=== PATIENT | female | born 1970 | race Caucasian/White ===

== ENCOUNTER 2021-02-23 14:56 | Outpatient (CLI) | payer OTHER, SELFPAY ==
--- NOTE | ~2021-02-23 | XR_ITS ---
EXAMINATION: XR abdomen/kub 1V DATE: 02/23/2021 15:19 INDICATION: Crohn's disease of small intestine. TECHNIQUE: A supine view of the abdomen on 2 radiographs was obtained. COMPARISON: Abdomen radiographs 11/28/2006 FINDINGS: There are no dilated loops of bowel. There is a small volume of stool in the colon. There i s a staple line in right abdomen. Calcifications in the pelvis are likely phleboliths. Surgical clips in the right upper quadrant are likely from cholecystectomy. IMPRESSION: 1. Normal bowel gas pattern. Reviewed, dictated and finalized at location A.
[2021-02-23 16:00] LABS: Hematocrit 39.6 % (37.0-47.0); Mean Corpuscular HGB Conc 32.8 g/dl (32-36); Mean Corpuscular Hemoglobin 30.2 pg (26-34); Mean Corpuscular Volume 91.9 fl (80-100); Mean Platelet Volume 8.7 fl (7.4-10.4); Platelet Count Result 339 k/mm3 (150-375); Red Blood Count 4.31 M/mm3 (4.2-5.4); Red Cell Distribution Width 13.7 % (11.5-14.5); White Blood Count 12.9 K/mm3 (4.5-10.0)
[2021-02-23 16:08] LABS: Alanine Aminotransferase 24 U/L (4-35); Albumin Level 4.5 g/dL (3.5-5.1); Alkaline Phosphatase 72 U/L (38-126); Anion Gap 8 mmol/L (8-16); Aspartate Amino Transferase 19 U/L (14-36); Bilirubin,Total 0.8 mg/dL (0.2-1.3); Blood Urea Nitrogen 18 mg/dL (7-17); CRP 0.7 mg/dL (<1.0); Calcium 9.5 mg/dL (8.4-10.2); Carbon Dioxide 30 mmol/L (22-30); Chloride 101 mmol/L (98-107); Estimated Glomerular Filt Rate 58; Glucose 95 mg/dL (65-110); Potassium 3.8 mmol/L (3.4-5.0); Sodium 139 mmol/L (137-145)
[2021-02-23 16:57] LABS: Erythrocyte Sedimentation Rate 22 mm/hr (0-20)
[2021-02-27 00:19] LABS: NIL 0.01 IU/mL; Quantiferon TB Plus, 1T NEGATIVE (NEGATIVE)
[2021-03-05 18:31] LABS: TPMT Activity 15
== END 2021-02-23 14:57 | disposition home or self-care (01) ==
LOC: ANHIMG 15:06
PROVIDERS: Visit Provider Nurse Practitioner Family
DX: K50.019 Crohn's disease of small intestine with unspecified complications (principal); R10.30 Lower abdominal pain, unspecified; R11.2 Nausea with vomiting, unspecified
CPT/HCPCS: 36415; 74018; 80053; 82657; 85027; 85652; 86140; 86480

== ENCOUNTER 2021-07-20 16:34 | Outpatient (CLI) | payer OTHER, SELFPAY ==
[2021-07-20 16:50] LABS: Hematocrit 38.1 % (37.0-47.0); Hemoglobin 12.8 g/dL (12.0-15.0); Mean Corpuscular HGB Conc 33.6 g/dl (32-36); Mean Corpuscular Hemoglobin 29.6 pg (26-34); Mean Corpuscular Volume 88.2 fl (80-100); Mean Platelet Volume 8.9 fl (7.4-10.4); Platelet Count Result 306 k/mm3 (150-375); Red Blood Count 4.32 M/mm3 (4.2-5.4); Red Cell Distribution Width 13.1 % (11.5-14.5); White Blood Count 8.5 K/mm3 (4.5-10.0)
[2021-07-20 17:02] LABS: Alanine Aminotransferase 25 U/L (4-35); Albumin Level 4.2 g/dL (3.5-5.1); Alkaline Phosphatase 81 U/L (38-126); Anion Gap 6 mmol/L (8-16); Aspartate Amino Transferase 26 U/L (14-36); Bilirubin,Total 1.2 mg/dL (0.2-1.3); Blood Urea Nitrogen 18 mg/dL (7-17); CRP 0.8 mg/dL (<1.0); Carbon Dioxide 31 mmol/L (22-30); Chloride 101 mmol/L (98-107); Estimated Glomerular Filt Rate 52; Glucose 102 mg/dL (65-110); Potassium 3.2 mmol/L (3.4-5.0); Sodium 138 mmol/L (137-145)
[2021-07-20 18:03] LABS: Erythrocyte Sedimentation Rate 21 mm/hr (0-20)
[2021-07-20 18:12] LABS: Hepatitis B Surface Antigen Negative (Negative)
[2021-07-20 18:18] LABS: HAV RESULT Negative (Negative); Hepatitis B Core IgM Result Negative (Negative)
[2021-07-20 18:30] LABS: Hepatitis C Virus Antibody Negative (Negative)
== END 2021-07-20 16:35 | disposition home or self-care (01) ==
PROVIDERS: Visit Provider Nurse Practitioner Family
DX: K50.019 Crohn's disease of small intestine with unspecified complications (principal)
CPT/HCPCS: 36415; 80053; 80074; 85027; 85652; 86140

== ENCOUNTER 2021-07-29 12:46 | Outpatient (CLI) | payer OTHER, SELFPAY ==
--- NOTE | ~2021-07-29 | XR_ITS ---
EXAMINATION: XR small bowel follow through DATE: 07/29/2021 16:07 INDICATION: Crohn's disease of small intestine. TECHNIQUE: Oral contrast was administered, and a time course of radiographs of the abdomen was obtain ed. Fluoroscopy of the small bowel was performed. Fluoroscopy exposure time was 0.2 minutes. The tota l number of images was 18. COMPARISON: Small bowel series 05/15/2006 FINDINGS: Surgical clips in the right upper quadrant are likely from cholecystectomy. There are changes of ileo colic resection and anastomosis. There are dilated loops of distal small bowel with irregular fold th ickening. Transit time from the stomach to proximal colon was approximately 1 hour and 45 minutes. IMPRESSION: 1. Dilated loops of distal small bowel with irregular fold thickening, consistent with inflammation a nd adynamic ileus. No stricture visualized. Reviewed, dictated and finalized at location A. IMPRESSION: 1. Dilated loops of distal small bowel with irregular fold thickening, consiste nt with inflammation and adynamic ileus. No stricture visualized.
[2021-08-05 18:32] LABS: Calprotectin, Stool 370 mcg/g
== END 2021-07-29 12:47 | disposition home or self-care (01) ==
PROVIDERS: Visit Provider Nurse Practitioner Family
DX: K50.019 Crohn's disease of small intestine with unspecified complications (principal)
CPT/HCPCS: 74250; 83993

== ENCOUNTER 2021-11-29 14:34 | Outpatient (CLI) | payer OTHER, SELFPAY ==
[2021-11-29 16:38] LABS: Toxigenic C. Diff NEGATIVE (NEGATIVE)
[2021-12-07 01:57] LABS: Calprotectin, Stool 23 mcg/g
== END 2021-11-29 14:35 | disposition home or self-care (01) ==
LOC: ANHLAB 14:40
PROVIDERS: Visit Provider Nurse Practitioner Family
DX: K90.9 Intestinal malabsorption, unspecified (principal); R10.30 Lower abdominal pain, unspecified; R19.7 Diarrhea, unspecified
CPT/HCPCS: 83993; 87045; 87177; 87209; 87427; 87493

== ENCOUNTER 2022-01-31 13:44 | Outpatient (CLI) | payer OTHER, SELFPAY ==
[2022-01-31 14:08] LABS: Hematocrit 39.3 % (37.0-47.0); Hemoglobin 13.4 g/dL (12.0-15.0); Mean Corpuscular HGB Conc 34.1 g/dl (32-36); Mean Corpuscular Hemoglobin 30.1 pg (26-34); Mean Corpuscular Volume 88.3 fl (80-100); Mean Platelet Volume 9.1 fl (7.4-10.4); Platelet Count Result 338 k/mm3 (150-375); Red Blood Count 4.45 M/mm3 (4.2-5.4); Red Cell Distribution Width 13.2 % (11.5-14.5); White Blood Count 10.4 K/mm3 (4.5-10.0)
[2022-01-31 14:57] LABS: Alanine Aminotransferase 33 U/L (6-35); Albumin Level 4.3 g/dL (3.5-5.1); Alkaline Phosphatase 84 U/L (38-126); Anion Gap 15 mmol/L (8-16); Aspartate Amino Transferase 30 U/L (14-36); Bilirubin,Total 2.1 mg/dL (0.2-1.3); Blood Urea Nitrogen 21 mg/dL (7-17); CRP 0.6 mg/dL (<1.0); Calcium 8.8 mg/dL (8.4-10.2); Carbon Dioxide 18 mmol/L (22-30); Chloride 105 mmol/L (98-107); Estimated Glomerular Filt Rate 47; Glucose 102 mg/dL (65-110); Potassium 2.7 mmol/L (3.4-5.0); Sodium 138 mmol/L (137-145)
[2022-01-31 15:13] LABS: Erythrocyte Sedimentation Rate 28 mm/hr (0-20)
== END 2022-01-31 13:45 | disposition home or self-care (01) ==
LOC: ANHLAB 13:50
PROVIDERS: Visit Provider Nurse Practitioner Family
DX: K50.019 Crohn's disease of small intestine with unspecified complications (principal)
CPT/HCPCS: 36415; 80053; 85027; 85652; 86140

== ENCOUNTER 2022-01-31 15:57 | Emergency (ER) | payer OTHER, SELFPAY ==
[2022-01-31] VITALS (7 sets, daily range): BP systolic 115–131; BP diastolic 78–89; PULSE 92–100; RESP 12–21; TEMP 36.8; O2SAT 95–97
[2022-01-31 17:38] LABS: Basophils Percent Auto 0.2 % (0.2-1.2); Eosinophils Absolute Auto 0.1 K/mm3 (0-0.3); Eosinophils Percent Auto 0.5 % (0-4.4); Hemoglobin 13.5 g/dL (12.0-15.0); Immature Granulocyte Absolute 0.03 K/mm3 (0.00-0.031); Immature Granulocyte Percent A 0.3 % (0-0.5); Lymphocytes Absolute Auto 1.94 K/mm3 (0.9-3.2); Lymphocytes Percent Auto 17.5 % (18.3-44.2); Mean Corpuscular HGB Conc 34.6 g/dl (32-36); Mean Corpuscular Hemoglobin 30.3 pg (26-34); Mean Corpuscular Volume 87.6 fl (80-100); Mean Platelet Volume 8.9 fl (7.4-10.4); Monocytes Absolute Auto 0.8 K/mm3 (0.1-0.6); Neutrophils Absolute Auto 8.3 K/mm3 (1.3-6.7); Neutrophils Percent Auto 74.5 % (45.5-73.1); Platelet Count Result 313 k/mm3 (150-375); Red Blood Count 4.45 M/mm3 (4.2-5.4); Red Cell Distribution Width 13.2 % (11.5-14.5); White Blood Count 11.1 K/mm3 (4.5-10.0)
[2022-01-31 18:00] LABS: Alanine Aminotransferase 34 U/L (6-35); Albumin Level 4.3 g/dL (3.5-5.1); Alkaline Phosphatase 85 U/L (38-126); Anion Gap 12 mmol/L (8-16); Aspartate Amino Transferase 32 U/L (14-36); Blood Urea Nitrogen 21 mg/dL (7-17); Calcium 8.9 mg/dL (8.4-10.2); Carbon Dioxide 22 mmol/L (22-30); Chloride 104 mmol/L (98-107); Estimated CRCL calculation 64 ml/min; Estimated Glomerular Filt Rate 52; Glucose 96 mg/dL (65-110); Potassium 2.8 mmol/L (3.4-5.0); Sodium 138 mmol/L (137-145)
--- NOTE | 2022-01-31 18:04 | ECG_ITS ---
Measurements Intervals Melvin Rate: 97 P: 18 MA: 162 QRS: -32 QRSD: 90 T: 16 QT: 343 QTc: 438 Interpretive Statements SINUS RHYTHM LEFT AXIS DEVIATION LOW QRS VOLTAGE IN PRECORDIAL LEADS BORDERLINE R WAVE PROGRESSION, ANTERIOR LEADS MINIMAL Q WAVES- HIGH LATERAL LEADS BORDERLINE T WAVE ABNORMALITY- ANT/INF LEADS BASELINE ARTIFACT- I, II, III, AVR, AVL, AVF BORDERLINE ECG NO PREVIOUS ECG AVAILABLE FOR COMPARISON Electronically Signed On 01-31-2022 21:27:36 CDT by Fuentes Waters D.O.
[2022-01-31] MEDS: SODIUM CHLORIDE 0.9% IV 250 ML 100 ML IV CONT (18:57)
[2022-01-31] MEDS: KCL 20 MEQ/SW 100 ML 100 ML 50 MEQ IVPB (18:57)
[2022-01-31] MEDS: POTASSIUM CHLORIDE 20 MEQ TABLET 40 MEQ PO (18:57)
--- NOTE | 2022-01-31 20:30 | ED.GENADULT ---
HPI - General Adult General Chief complaint: Recheck/Abnormal Lab/Rx Stated complaint: LOW POTASSIUM Time Seen by Provider: 01/31/22 17:46 History of Present Illness HPI narrative: Patient is a 51-year-old female who presents ER due to a abnormal lab finding. Patient reports yesterday she been having diarrhea as well as vomiting. She has history of Crohn's and called her GI team to see if she can get some steroids but they wanted to perform blood testing first. Symptoms have resolved today but blood was drawn and showed up for potassium level of 2.7. She is having no weakness or cramping. No numbness or tingling. She feels well otherwise. She has been taking her potassium supplement at home. She is on no diuretics. Related Data Home Medications Medication Instructions Recorded Confirmed amitriptyline 25 mg tablet 25 mg PO HS 03/31/19 01/24/22 valsartan 160 mg tablet 160 mg PO DAILY 03/31/19 01/24/22 potassium chloride 20 mEq 20 meq PO DAILY 05/12/19 01/24/22 tablet,extended release Saccharomyces boulardii 250 mg 250 mg PO DAILY 07/20/21 01/24/22 capsule (Daily Probiotic (S. boulardii)) cyanocobalamin (vitamin B-12) 100 mcg subcut MONTHLY 07/20/21 01/24/22 1,000 mcg/mL injection solution essential oil BYMOUTH DAILY 07/20/21 01/24/22 tumeric 1,950 mg BYMOUTH BID 07/20/21 01/24/22 ustekinumab 90 mg/mL subcutaneous 90 mg subcut ONCE 01/24/22 01/24/22 syringe (Stelara) Allergies Allergy/AdvReac Type Severity Reaction Status Date / Time aspirin Allergy Mild HIVES Verified 01/31/22 18:18 Review of Systems Review of Systems: All systems reviewed & are unremarkable except as noted in HPI and below Constitutional: Constitutional: Denies chills and Denies fever(s) ENT: Denies nasal congestion and Denies sore throat Cardiovascular: Cardiovascular: Denies chest pain, Denies rapid heart rate and Denies radiating jaw, neck or arm pain Respiratory: Respiratory: Denies cough and Denies dyspnea Gastrointestinal: Gastrointestinal: Denies abdominal pain, Reports diarrhea, Reports nausea and Reports vomiting [facility] Past Medical History Medical History Abdominal pain Cancer Colitis Crohn's disease of ileum Diarrhea Head ache Hypertension Hypokalemia Obese Ulcer Surgical History Surgical History History of bowel resection History of cholecystectomy History of reversal of ileostomy Status post surgical removal of malignant neoplasm of skin Family History Family History Father Asthma Mother Breast cancer Grandparent Breast cancer Social History Social History Smoking status: Never smoker Alcohol intake: current Drinks per week: 0 Alcohol use details: every 2-3 months Spiritual care concerns: No Exam Narrative: GENERAL: Well-appearing, well-nourished, and in no acute distress. HEAD: Normocephalic, atraumatic. EYES: PERRL and EOMI. ENT: Mucous membranes moist. CHEST: Clear to auscultation. No respiratory distress. HEART: Regular rate and rhythm. Normal peripheral pulses. ABDOMEN: Soft, nontender, nondistended. EXTREMITIES: Normal range of motion. No edema. NEURO:Alert and oriented x3. PSYCH: Normal mood and affect. Course Course Emergency Course: Potassium replaced. Patient asymptomatic. Discharge home. Patient has home replacement she can take. Vital Signs Vital signs: Vital Signs Temperature 98.2 F 01/31/22 16:05 Pulse Rate 97 01/31/22 16:05 Respiratory Rate 20 01/31/22 16:05 Blood Pressure 128/78 01/31/22 16:05 Pulse Oximetry 96 01/31/22 16:05 Oxygen Delivery Room Air 01/31/22 16:05 Temperature 98.2 F 01/31/22 16:05 Pulse Rate 96 01/31/22 21:08 Respiratory Rate 18 01/31/22 21:08 Blood Pressure 118/80
[2022-01-31 21:40] LABS: Anion Gap 10 mmol/L (8-16); Blood Urea Nitrogen 20 mg/dL (7-17); Calcium 8.5 mg/dL (8.4-10.2); Carbon Dioxide 21 mmol/L (22-30); Chloride 105 mmol/L (98-107); Estimated CRCL calculation 77 ml/min; Estimated Glomerular Filt Rate > 60; Glucose 90 mg/dL (65-110); Potassium 3.1 mmol/L (3.4-5.0); Sodium 136 mmol/L (137-145)
== END 2022-01-31 21:50 | disposition home or self-care (01) ==
PROVIDERS: Emergency Medicine; Emergency Provider Emergency Medicine; PCP Nurse Practitioner Family
DX: E87.6 Hypokalemia (principal); I10 Essential (primary) hypertension; K50.90 Crohn's disease, unspecified, without complications; E66.9 Obesity, unspecified; Z68.34 Body mass index [BMI] 34.0-34.9, adult; Z90.49 Acquired absence of other specified parts of digestive tract; Z85.828 Personal history of other malignant neoplasm of skin
CPT/HCPCS: 36415; 80048; 80053; 85025; 85027; 85652; 86140; 93005; 96365; 96366; 99284; A9270; J3480; J7050

== ENCOUNTER 2022-02-17 05:45 | Inpatient (IN) | payer OTHER, SELFPAY ==
--- NOTE | ~2022-02-17 | CT_ITS ---
EXAMINATION: CT abdomen pelvis w con DATE: 02/17/2022 07:13 INDICATION: Crohn's disease presenting with upper abdominal pain TECHNIQUE: Computed tomography (CT) of the abdomen and pelvis was performed with 100 mL Omnipaque-350 intravenous contrast. Automated exposure control and iterative reconstruction technique were employe d. The dose-length product was 1489.40 mGy-cm. COMPARISON: None FINDINGS: Mild dependent atelectasis in the bilateral lower lobes. Heart size is normal. No pericardial or pleu ral effusion. Small sliding-type hiatal hernia. Focal hepatic steatosis at the ligamentum teres and a long the anterior margin of the caudal tip of the right hepatic lobe. Cholecystectomy clips the gallb ladder fossa. Spleen, pancreas, bilateral adrenal glands and kidneys are normal. There are multiple l oops of fluid-filled dilated small bowel measuring up to 5.6 cm maximal diameter extending to a trans ition point at the distalmost remaining ileum approximately 10 cm from the ileocolic anastomosis in t he right lower quadrant. The transition point is at a sharp 180 degree change in course of the ilium with mild wall thickening in the remaining distal 10 cm filling is unclear whether this is due to an adhesion or distal stricture. The more distal colon is largely decompressed. Bladder is normal. The u terus is not identified and has likely been surgically resected. Small amount of free fluid in the de ep pelvis. No abscess or free intraperitoneal gas. There is a very small fat-containing ventral herni a slightly cephalad to the right pubic body at the caudal margin of the midline surgical scar. A few mildly prominent but still normal-sized likely reactive ileocolic chain lymph nodes. No pathologicall y enlarged abdominal or pelvic lymphadenopathy. Bones are unremarkable. IMPRESSION: 1. Small bowel obstruction with transition into right lower quadrant 10 cm proximal to the ileocolic anastomosis could be due to either adhesion or stricture. 2. Small sliding-type hiatal hernia. 3. Small fat-containing ventral hernia along the caudal anterior pelvic wall. Reviewed, dictated and finalized at location A. IMPRESSION: 1. Small bowel obstruction with transition into right lower quadrant 10 cm prox imal to the ileocolic anastomosis could be due to either adhesion or stricture. 2. Small sliding-type hiatal hernia. 3. Small fat-containing ventral hernia along the caudal anterior pelvic wall.
--- NOTE | ~2022-02-17 | XR_ITS ---
EXAMINATION: XR abdomen NG/feed tube insert DATE: 02/17/2022 09:16 INDICATION: Nasogastric tube placement. TECHNIQUE: An upright view of the abdomen was obtained. COMPARISON: CT abdomen and pelvis 02/17/2022 FINDINGS: The lower abdomen is excluded. There is dilated small bowel in left abdomen. The colon is d ecompressed. The nasogastric tube tip is in the stomach. IMPRESSION: 1. Nasogastric tube tip in the stomach. 2. Dilated small bowel, consistent with small bowel obstruction. Reviewed, dictated and finalized at location D.
--- NOTE | ~2022-02-17 | XR_ITS ---
UGI-AIR CONTRAST/SMALL BOWEL INDICATION: Small bowel obstruction. History of Crohn's disease. TECHNIQUE: Serial images of the upper GI tract structures and small bowel are performed following ora l administration of water-soluble contrast. COMPARISON: 02/17/2022 FINDINGS: . NG tube in the stomach. Gastric contour, mucosa and motility are normal. The duodenal bu lb fills and empties regularly and has a normal mucosal pattern. The duodenal sweep is in normal pos ition. There is rapid transit of contrast through the small bowel to the colon of less than 30 minute s. The distal small bowel mucosal pattern is slightly irregular. There are changes of partial distal small bowel resection. There are cholecystectomy clips. IMPRESSION: 1: No evidence for obstruction. Irregularity to the distal small bowel, likely reflects patient's kno wn Crohn's disease. Distortion of the bowel is seen consistent with partial distal small bowel resect ion. Reviewed, dictated and finalized at location A. IMPRESSION: 1: No evidence for obstruction. Irregularity to the distal small bowel, likely reflects patient's known Crohn's disease. Distortion of the bowel is seen consi stent with partial distal small bowel resection.
--- NOTE | 2022-02-17 06:12 | PC.NURSE ---
pt states she is unable to void at this time.
--- NOTE | 2022-02-17 06:12 | ED.GENADULT ---
HPI - General Adult General Chief complaint: Abdominal Pain <Ronni Costa MD - Last Filed: 02/17/22 06:50> Stated complaint: abdominal pain <Ronni Costa MD - Last Filed: 02/17/22 06:50> Time Seen by Provider: 02/17/22 05:59 <Ronni Costa MD - Last Filed: 02/17/22 06:50> History of Present Illness HPI narrative: 51-year-old female with history of Crohn's disease and previous small bowel obstructions presenting to the emergency department for evaluation of worsening upper abdominal pain. Patient states symptoms have been intermittently worsening since November. Patient states over the last few days they have worsened even more. Patient does describe nausea and vomiting. Patient states she is still passing some stool. Patient does have follow-up with the [facility] and sees Trish. Reports prior history of small bowel resection in 1985 and 2013. Patient also has a prior history of cholecystectomy. Patient has been taking Stelara/Ustekinumab for her Crohn's disease.. <Ronni Costa MD - Last Filed: 02/17/22 06:50> Related Data Home medications: Home Medications Medication Instructions Recorded Confirmed amitriptyline 25 mg tablet 25 mg PO HS 03/31/19 01/24/22 valsartan 160 mg tablet 160 mg PO DAILY 03/31/19 01/24/22 potassium chloride 20 mEq 20 meq PO DAILY 05/12/19 01/24/22 tablet,extended release Saccharomyces boulardii 250 mg 250 mg PO DAILY 07/20/21 01/24/22 capsule (Daily Probiotic (S. boulardii)) cyanocobalamin (vitamin B-12) 100 mcg subcut MONTHLY 07/20/21 01/24/22 1,000 mcg/mL injection solution essential oil BYMOUTH DAILY 07/20/21 01/24/22 tumeric 1,950 mg BYMOUTH BID 07/20/21 01/24/22 ustekinumab 90 mg/mL subcutaneous 90 mg subcut ONCE 01/24/22 01/24/22 syringe (Stelara) <Ronni Costa MD - Last Filed: 02/17/22 06:50> Allergies/adverse reactions: Allergies Allergy/AdvReac Type Severity Reaction Status Date / Time aspirin Allergy Mild HIVES Verified 01/31/22 18:18 <Ronni Costa MD - Last Filed: 02/17/22 06:50> Review of Systems Review of Systems: CONSTITUTIONAL: Denies fever, chills, or sweats. EYES: Denies visual changes, redness, or discharge. ENT: Denies rhinorrhea, congestion, sore throat, or otalgia. CARDIOVASCULAR: Denies chest pain, palpitations, or edema. RESPIRATORY: Denies cough or dyspnea. GASTROINTESTINAL: See HPI GENITOURINARY: Denies dysuria or hematuria. SKIN: Denies rash or itching. MUSCULOSKELETAL: Denies back pain, joint pain, or myalgia. NEUROLOGIC: Denies headache, numbness, or weakness. PSYCHIATRIC: Denies anxiety or depression. <Ronni Costa MD - Last Filed: 02/17/22 06:50> PMFSH Past Medical History Medical History: Medical History Abdominal pain Cancer Colitis Crohn's disease of ileum Diarrhea Head ache Hypertension Hypokalemia Obese Ulcer <Ronni Costa MD - Last Filed: 02/17/22 06:50> Surgical History Surgical History: Surgical History History of bowel resection History of cholecystectomy History of reversal of ileostomy Status post surgical removal of malignant neoplasm of skin <Ronni Costa MD - Last Filed: 02/17/22 06:50> Family History Family History: Family History Father Asthma Mother Breast cancer Grandparent Breast cancer <Ronni Costa MD - Last Filed: 02/17/22 06:50> Social History Social History: Social History Smoking status: Never smoker Alcohol intake: current Drinks per week: 0 Alcohol use details: every 2-3 months Spiritual care concerns: No <Ronni Costa MD - Last Filed: 02/17/22 06:50> Exam Narrative: APPEARANCE: Well appearing, no pain, no distress, well-nourished. TRAVIS
[2022-02-17 06:18] LABS: Basophils Percent Auto 0.2 % (0.2-1.2); Eosinophils Percent Auto 0.5 % (0-4.4); Hematocrit 37.9 % (37.0-47.0); Hemoglobin 13.1 g/dL (12.0-15.0); Immature Granulocyte Absolute 0.03 K/mm3 (0.00-0.031); Immature Granulocyte Percent A 0.4 % (0-0.5); Lymphocytes Absolute Auto 1.08 K/mm3 (0.9-3.2); Lymphocytes Percent Auto 13.3 % (18.3-44.2); Mean Corpuscular HGB Conc 34.6 g/dl (32-36); Mean Corpuscular Hemoglobin 30.3 pg (26-34); Mean Corpuscular Volume 87.5 fl (80-100); Mean Platelet Volume 8.8 fl (7.4-10.4); Monocytes Absolute Auto 0.6 K/mm3 (0.1-0.6); Monocytes Percent Auto 7.9 % (2.6-8.5); Neutrophils Absolute Auto 6.3 K/mm3 (1.3-6.7); Neutrophils Percent Auto 77.7 % (45.5-73.1); Platelet Count Result 313 k/mm3 (150-375); Red Blood Count 4.33 M/mm3 (4.2-5.4); Red Cell Distribution Width 12.9 % (11.5-14.5); White Blood Count 8.1 K/mm3 (4.5-10.0)
[2022-02-17] MEDS: SODIUM CHLORIDE 0.9% IV 1,000 ML 999 ML IV CONT (06:20)
[2022-02-17] MEDS: ONDANSETRON INJ 4 MG/2 ML VIAL IV PUSH (06:21)
[2022-02-17] MEDS: HYDROmorphone HCL INJ (*CRX) 1 MG/ML SYR 0.5 MG IV PUSH (06:21)
[2022-02-17 06:30] LABS: Lactic Acid Reflex 0.7 mmol/L (0.7-2.0)
[2022-02-17 06:31] LABS: Alanine Aminotransferase 63 U/L (6-35); Albumin Level 4.2 g/dL (3.5-5.1); Alkaline Phosphatase 121 U/L (38-126); Anion Gap 9 mmol/L (8-16); Aspartate Amino Transferase 54 U/L (14-36); Bilirubin,Total 1.6 mg/dL (0.2-1.3); Blood Urea Nitrogen 15 mg/dL (7-17); Calcium 8.8 mg/dL (8.4-10.2); Carbon Dioxide 24 mmol/L (22-30); Chloride 106 mmol/L (98-107); Estimated CRCL calculation 71 ml/min; Estimated Glomerular Filt Rate 58; Glucose 122 mg/dL (65-110); Lipase 43 U/L (23-300); Potassium 3.4 mmol/L (3.4-5.0); Sodium 139 mmol/L (137-145)
[2022-02-17 07:43] VITALS: BP 131/86; PULSE 85; RESP 19; O2SAT 98
[2022-02-17 07:46] VITALS: BP 128/82; PULSE 82; RESP 19; O2SAT 97
[2022-02-17 08:01] VITALS: BP 126/82; PULSE 85; RESP 12; O2SAT 97
--- NOTE | 2022-02-17 08:15 | PC.NURSE ---
pt attempting to provide urine sample at this time
--- NOTE | 2022-02-17 08:30 | PC.NURSE ---
pt unable to give urine sample
--- NOTE | 2022-02-17 09:44 | ADMGEN ---
This patient, Em Guerra, was admitted to 2 Medical Room 241-01. Patient/family oriented to hospital policies and general routines including ID bracelet, bed and alarms, visiting hours, pain management, procedures, bathroom and other care routines, personal items, smoking policy, room service/diet, and visiting hours. Information on how to activate the Rapid Response Team has been discussed. Patient/Family are encouraged to report perceived risks to care and to ask questions if they do not understand what they are told or what they should do. ED SBAR printed, spoke with CORTES Anderson
[2022-02-17 09:45] VITALS: BP 124/80; PULSE 78; RESP 12; TEMP 36.4; O2SAT 98
[2022-02-17] MEDS: MORPHINE SULFATE (*CRX) 2 MG/ML INJ IV PUSH ×2 (09:59→17:04)
[2022-02-17] MEDS: SODIUM CHLORIDE 0.9% IV 1,000 ML 100 ML IV CONT ×2 (10:00→21:06)
--- NOTE | 2022-02-17 13:00 | PM.IMHP ---
H&P: HPI History of Present Illness Date/Time: 02/17/22 13:00 Chief Complaint: Abdominal pain. Narrative: This is a pleasant 51-year-old female with Crohn's disease and history of small-bowel obstructions status post partial small-bowel resection who presented to the emergency department for evaluation of abdominal pain. It is not necessarily unusual for her to have bouts of abdominal pain which she attributes to her Crohn's disease. She is typically able to manage these flare-ups at home with bowel rest and analgesics. The last few days however her pain has been more intense and has lasted longer associated with nausea and vomiting. In fact she thinks that 2 days ago her emesis may have contained feculent material. Normally she has 6 to 7 loose stools a day at baseline however over the last couple of days she has been only having 1 to 2 small loose stools a day. She has not noticed any blood or mucus in the stool or any blood in her emesis. She has not had fever, chills, or sweats. CT of the abdomen and pelvis showed evidence of a small-bowel obstruction with transition into the right lower quadrant approximately 10 centimeters proximal to an ileocolic anastomosis which could be either due to adhesions or stricture. She is being admitted in this setting for further treatment. At the time my evaluation she feels perhaps a little bit better since her NG tube was inserted as she continues to have intermittent cramping and sharp shooting pain. Last Stelara injection was about 1 month ago. She has not been on steroids for quite some time. Review of Systems Review of Systems: Twelve systems were reviewed. No fever, chills, or sweats. No recent cold or flu symptoms. No chest pain or shortness of breath. No dysuria. She has occasional cramping in her legs which she attributes to low levels of potassium and magnesium. In fact she was recently started on supplements. No history of venous thromboembolism. Except as documented, all other systems were reviewed and are negative. [facility] Past Medical History Medical History (Updated 02/17/22 @ 17:55 by Reshma Haynes PA-C) Basal cell carcinoma of nose Crohn's disease Hypertension Small bowel obstruction Surgical History Surgical History (Updated 02/17/22 @ 17:52 by Reshma Haynes PA-C) History of basal cell carcinoma excision History of bowel resection History of cholecystectomy History of colonoscopy with polypectomy History of reversal of ileostomy Family History Family History Father Asthma Heart disease Mother Breast cancer Grandparent Breast cancer Social History Social History Social History: Surrogate medical decision maker: Rosemarie Redman, daughter. Code status: Full code. Smoking status: Never smoker Second hand tobacco smoke exposure: No Alcohol intake: current Alcohol use details: Rare alcohol use in moderation Substance use: current Substance use type: marijuana Other substance usage details: Occasial THC edibles for pain. Spiritual care concerns: No Meds Home Medications and Allergies Home Medications Medication Instructions Recorded Confirmed Type amitriptyline 25 mg tablet 25 mg PO HS 03/31/19 02/17/22 History potassium chloride 20 mEq 20 meq PO DAILY 05/12/19 02/17/22 History tablet,extended release Saccharomyces boulardii 250 mg 250 mg PO DAILY 07/20/21 02/17/22 History capsule (Daily Probiotic (S. boulardii)) cyanocobalamin (vitamin B-12) 100 mcg subcut MONTHLY 07/20/21 02/17/22 History 1,000 mcg/mL injection solution essential oil BYMOUTH DAILY 07/20/21 01/24/22 History tumeric 1,950 mg BYMOUTH BID 07/20/21 02/17/22 History cholestyramine (with sugar) 4 gram 4 g PO DAILY #348.6 grams 01/24/22 02/17/22 Rx oral powder ustekinumab 90 mg/mL subcutaneous 90 mg subcut ONCE
[2022-02-17 14:00] VITALS: BP 122/83; PULSE 85; RESP 12; TEMP 36.4; O2SAT 98
--- NOTE | 2022-02-17 14:17 | PC.NURSE ---
pt sent up from ED with orders incomplete for UA and straight cath. Pt voided independently on the floor, no need for cath. UA sent.
[2022-02-17 14:46] LABS: Add Urine Microscopic? YES; Appearance Urine Clear (Clear); Bilirubin Urine Negative (Negative); Blood Urine Negative (Negative); Color Urine Yellow (Yellow); Glucose Urine UA Negative (Negative); Ketones Urine Trace mg/dL (Negative); Leukocyte Esterase Ur Negative LEU/UL (Negative); Mucus Urine Rare /lpf; Nitrate Urine Negative (Negative); Protein Urine 1+ mg/dL (Negative); Squamous Epithelial Cell Urine Many /hpf (Few); Urobilinogen Urine Negative mg/dL (<2.0); WBC Urine 0-3 /hpf
[2022-02-17 15:20] VITALS: BMI 36.1
--- NOTE | 2022-02-17 15:28 | WPDGICN ---
Assessment and Plan Assessment and plan (1) Small bowel obstruction: Code(s): K56.609 - Unspecified intestinal obstruction, unspecified as to partial versus complete obstruction Status: Acute Assessment and Plan: Patient with small-bowel obstruction clinically which correlates with CT scan finding suggests a small obstruction approximately 10cm proximal to the ileocolonic anastomosis. Difficult to tell whether this is secondary to adhesions or to active Crohn's disease. Patient recently has been treated with Stelara. Plan is for NG tube decompression. She may need surgical follow-up in cases fails to resolve. Will give patient brief trial of a IV steroids. (2) Crohn's disease: Code(s): K50.90 - Crohn's disease, unspecified, without complications Status: Acute Assessment and Plan: Patient with known history of Crohn's disease. Most recent colonoscopy 2018 did reveal evidence of active ileitis. She has been on stool are a since November of this year. Now with obstruction that may be related to Adhesions versus active Crohn's disease. (3) History of bowel resection: Code(s): Z90.49 - Acquired absence of other specified parts of digestive tract Status: Acute GI Consult Note Consult date/time: 02/17/22 15:28 Reason for consult: Small-bowel obstruction, Crohn's disease. HPI: Em Guerra is a 51 year old female I am asked to see at the request of the hospitalist service. Patient with a known history of Crohn's disease since age 6. Patient has had 2 previous resections of distal small bowel because of active Crohn's disease. 2014and in 1985. She also has a history of a colecystectomy. patient has been on previous biologic agents. Since November of 2021 she has begun to have more significant abdominal pain along with upper abdominal distention. This has prompted her to be treated with stool are a sense November. She has intermittently required steroid use. She has not taken steroids over the last several weeks however. Patient states because of increasing pain and distention in the upper abdomen she presented the emergency room today which showed CT scan with apparent small bowel obstruction. Patient's family history is noncontributory. She does not smoke cigarettes. She has not taken recent NSAIDs. Review of Systems Review of Systems: Review of systems noncontributory. [facility] Past Medical History Medical History (Updated 02/17/22 @ 13:27 by Reshma Haynes PA-C) Crohn's disease Hypertension Small bowel obstruction Surgical History Surgical History (Updated 02/17/22 @ 13:23 by Reshma Haynes PA-C) History of bowel resection History of cholecystectomy History of colonoscopy with polypectomy History of reversal of ileostomy Status post surgical removal of malignant neoplasm of skin Family History Family History (Updated 02/17/22 @ 13:23 by Reshma Haynes PA-C) Father Asthma Heart disease Mother Breast cancer Grandparent Breast cancer Social History Social History (Updated 02/17/22 @ 13:26 by Reshma Haynes PA-C) Social History: Surrogate medical decision maker: Rosemarie Redman, daughter. Code status: Full code. Smoking status: Never smoker Second hand tobacco smoke exposure: No Alcohol intake: current Alcohol use details: Rare alcohol use in moderation Substance use: current Substance use type: marijuana Other substance usage details: Occasial THC edibles for pain. Spiritual care concerns: No Meds Home Medications and Allergies Home Medications Medication Instructions Recorded Confirmed Type amitriptyline 25 mg tablet 25 mg PO HS 03/31/19 02/17/22 History potassium chloride 20 mEq 20 meq PO DAILY 05/12/19 02/17/22 History tablet,extended release Saccharomyces boulardii 250 mg 250 mg PO DAILY 07/20/21 02/17/22 History capsule (Daily Probiotic (S. boulardii)) cyanoco
[2022-02-17 17:02] LABS: CRP < 0.5 mg/dL (<1.0)
--- NOTE | 2022-02-17 19:01 | PM.CNGS ---
Assessment and Plan Assessment and plan (1) Small bowel obstruction: Code(s): K56.609 - Unspecified intestinal obstruction, unspecified as to partial versus complete obstruction Status: Acute Assessment and Plan: I have reviewed the CT and discussed the findings with the patient. She has evidence of a small-bowel obstruction which is possibly related to adhesions or Crohn's disease. NG tube was placed and we will continue bowel rest with NG decompression at this time. Will await further treatment by GI and determine if obstruction is showing signs of resolution. Will consider small-bowel follow-through if no significant bowel activity is noted within the next 24-48 hours. (2) Crohn's disease: Code(s): K50.90 - Crohn's disease, unspecified, without complications Status: Acute (3) Hypertension: Code(s): I10 - Essential (primary) hypertension Status: Acute (4) History of bowel resection: Code(s): Z90.49 - Acquired absence of other specified parts of digestive tract Status: Acute History of Present Illness Consult details Consult date: 02/17/22 Reason for consult: other (Small-bowel obstruction) Narrative: this is a 51-year-old woman who I am asked to see for a small-bowel obstruction. She presented to the emergency department this morning with worsening abdominal pain over the past 5 days. She states that around Sunday she started feeling some abdominal pain and bloating. She has had bowel obstructions in the past and thought that this might be another bowel obstruction. She was watching her oral intake and limiting to liquids, but over the next several days she continued to worsen. She stated that she was vomiting fecal into material and pain was worsening therefore she decided to come into the emergency department. She has a history of Crohn's disease and underwent 2 prior surgeries for this. She had exploratory surgery with ileostomy and small-bowel resection in 1983 and 2 weeks after had the ileostomy taken down. She then had another exploratory surgery with small bowel resection in 2013. She was being treated for Crohn's and was doing well, but lost her insurance about a year and a half ago and was off any maintenance medications at that time. She was placed back on Stelara about 3 months ago but has not noticed complete improvement. She states that she has since noted some slow improvements but still feels that she is having active Crohn's flare ups. She has had a couple small bowel movements over the past couple days and had a very small bowel movement this morning. She is otherwise not passing flatus. CT in the emergency department showed evidence of a distal small-bowel obstruction and NG tube was placed. She has felt some slight improvement since the NG tube was placed. She was seen by GI and was started on IV steroids. Review of Systems Review of Systems: All systems reviewed & are unremarkable except as noted in HPI and below Constitutional: Constitutional: Denies chills and Denies fever(s) Eyes: Eyes: Denies change in vision ENT: Denies hearing loss, Denies neck pain and Denies sore throat Cardiovascular: Cardiovascular: Denies chest pain and Denies dyspnea Respiratory: Respiratory: Denies cough, Denies dyspnea and Denies wheezing Gastrointestinal: Gastrointestinal: Reports as per HPI Genitourinary: Genitourinary: Denies hematuria and Denies dysuria Musculoskeletal: Musculoskeletal: Denies arthralgias, Denies joint swelling and Denies neck pain Allergic/Immunologic: Allergic/Immunologic: Denies wheezing [facility] Past Medical History Medical History (Updated 02/17/22 @ 17:55 by Reshma Haynes PA-C) Basal cell carcinoma of nose Crohn's disease Hypertension Small bowel obstruction Surgical History Surgical History (Updated 02/17/22 @ 17:52 by Reshma Haynes PA-C) History of basal cell carcinoma excision History of bowel resection Histor
[2022-02-17 19:11] VITALS: BP 106/68; PULSE 86; RESP 18; TEMP 36.2; O2SAT 98
[2022-02-17] MEDS: methylPREDNISolone SOD SUCC 40 MG VIAL IV PUSH (21:07)
[2022-02-17 21:41] VITALS: BMI 36.3
[2022-02-18 03:10] VITALS: BP 115/79; PULSE 90; RESP 18; TEMP 36.4; O2SAT 97
[2022-02-18 05:12] LABS: Hematocrit 35.2 % (37.0-47.0); Hemoglobin 11.9 g/dL (12.0-15.0); Mean Corpuscular HGB Conc 33.8 g/dl (32-36); Mean Corpuscular Hemoglobin 30.7 pg (26-34); Platelet Count Result 277 k/mm3 (150-375); Red Blood Count 3.87 M/mm3 (4.2-5.4); Red Cell Distribution Width 12.9 % (11.5-14.5); White Blood Count 7.7 K/mm3 (4.5-10.0)
[2022-02-18 05:33] LABS: Alanine Aminotransferase 50 U/L (6-35); Albumin Level 3.5 g/dL (3.5-5.1); Alkaline Phosphatase 100 U/L (38-126); Anion Gap 11 mmol/L (8-16); Aspartate Amino Transferase 31 U/L (14-36); Bilirubin,Total 1.5 mg/dL (0.2-1.3); Blood Urea Nitrogen 12 mg/dL (7-17); Carbon Dioxide 23 mmol/L (22-30); Chloride 109 mmol/L (98-107); Estimated CRCL calculation 80 ml/min; Estimated Glomerular Filt Rate > 60; Glucose 107 mg/dL (65-110); Magnesium 1.7 mg/dL (1.6-2.3); Potassium 3.3 mmol/L (3.4-5.0); Sodium 143 mmol/L (137-145)
[2022-02-18] MEDS: methylPREDNISolone SOD SUCC 40 MG VIAL IV PUSH ×3 (05:56→21:53)
[2022-02-18] MEDS: SODIUM CHLORIDE 0.9% IV 1,000 ML 100 ML IV CONT ×2 (05:59→18:04)
[2022-02-18 06:57] LABS: HAV RESULT Negative (Negative); Hepatitis B Core IgM Result Negative (Negative); Hepatitis B Surface Antigen Negative (Negative); Hepatitis C Virus Antibody Negative (Negative)
--- NOTE | 2022-02-18 09:04 | WPDGIPROGNO ---
Progress Note: A&P Assessment and Plan (1) Small bowel obstruction: Code(s): K56.609 - Unspecified intestinal obstruction, unspecified as to partial versus complete obstruction Status: Acute Assessment and Plan: Clinically small-bowel obstruction improving with passage of flatus and stool. Less abdominal distention. Will plan small-bowel follow-through to assess narrowing suggested on CT scan. Continue IV steroids for 1 more day and change to oral medications subsequently. Will clamp NG tube pending results small-bowel series. (2) Crohn's disease: Code(s): K50.90 - Crohn's disease, unspecified, without complications Status: Acute Assessment and Plan: on IV steroids now. Continue biologic agent as previously prescribed. Subjective Date/time seen: 02/18/22 09:04 Patient alert this morning. Feels much more comfortable. Passed flatus and stool. Has received only 2 doses of IV steroids. Review of Systems Review of Systems: Review of systems noncontributory. Exam Narrative: Physical exam reveals patient be alert comfortable at rest NG tube remains in place vital signs stable. HEENT exam no icterus. Lungs are clear. Heart without murmur. Abdomen is softer. Bowel sounds are present. No masses at present. Previous upper abdominal distention now resolved. Objective Data Vital Signs Vital Signs: Vital Signs - 24 hr 02/17/22 09:45 02/17/22 14:00 02/17/22 16:00 Temperature 97.6 F 97.6 F Pulse Rate 78 85 Respiratory Rate 12 12 Blood Pressure 124/80 122/83 Pulse Oximetry 98 98 Oxygen Delivery Room Air 02/17/22 19:11 02/17/22 21:35 02/18/22 03:10 Temperature 97.1 F L 97.6 F Pulse Rate 86 90 Respiratory Rate 18 18 Blood Pressure 106/68 115/79 Pulse Oximetry 98 97 Oxygen Delivery Room Air 02/18/22 08:00 Temperature Pulse Rate Respiratory Rate Blood Pressure Pulse Oximetry Oxygen Delivery Room Air Intake/Output Intake/Output: Intake & Output 02/15/22 02/16/22 02/17/22 02/18/22 23:59 23:59 23:59 23:59 Intake Total 2000 1000 Output Total 1300 400 Balance 700 600 Meds/Results Medications: Active Medications Generic Name Dose Route Start Last Admin Trade Name Freq PRN Reason Stop Dose Admin Sodium Chloride 1,000 mls @ 100 mls/hr 02/17/22 09:25 02/18/22 05:59 Normal Saline Iv IV CONT 100 mls/hr .Q10H AMILCAR Administration Acetaminophen 650 mg in 65 mls @ 260 mls/hr 02/17/22 13:35 Ofirmev 650 Mg Ivpb IVPB 02/18/22 13:34 Q6H PRN Pain Rated 1-6 Methylprednisolone Sodium Succinate 40 mg 02/17/22 22:00 02/18/22 05:56 Methylprednisolone Sod Succ 40 Mg Vial IV PUSH 40 mg Q8HR AMILCAR Administration Morphine Sulfate 2 mg 02/17/22 09:26 02/17/22 17:04 Morphine Sulfate (*Crx) 2 Mg/Ml Inj IV PUSH 2 mg Q4H PRN Administration Pain Rated 5-10 Radiology Results: ITS Impressions Abdomen/Pelvis CT 02/17/22 07:16 IMPRESSION: 1. Small bowel obstruction with transition into right lower quadrant 10 cm proximal to the ileocolic anastomosis could be due to either adhesion or stricture. 2. Small sliding-type hiatal hernia. 3. Small fat-containing ventral hernia along the caudal anterior pelvic wall. Abdomen X-Ray 02/17/22 09:17 IMPRESSION: 1. Nasogastric tube tip in the stomach. 2. Dilated small bowel, consistent with small bowel obstruction. Labs Labs: Laboratory Results - last 24 hr 02/17/22 02/17/22 02/18/22 14:19 16:13 04:24 WBC 7.7 RBC 3.87 L Hgb 11.9 L Hct 35.2 L MCV 91.0 MCH 30.7 MCHC 33.8 RDW 12.9 Plt Count 277 MPV 9.0 Sodium Potassium Chloride Carbon Dioxide Anion Gap BUN Creatinine Estim Creat Clear Calc Estimated GFR Glucose Calcium Magnesium Total Bilirubin AST ALT Alkaline Phosphatase C-Reactive Protein < 0.5 Total Protein Albumin Urine C
--- NOTE | 2022-02-18 11:36 | PM.PNGS ---
Progress Note: A&P Assessment and Plan (1) Small bowel obstruction: Code(s): K56.609 - Unspecified intestinal obstruction, unspecified as to partial versus complete obstruction Status: Acute Assessment and Plan: Bowels moving. SBFT shows no persistent obstruction. Continue as per GI Will sign off for now (2) Crohn's disease: Code(s): K50.90 - Crohn's disease, unspecified, without complications Status: Acute (3) History of bowel resection: Code(s): Z90.49 - Acquired absence of other specified parts of digestive tract Status: Acute (4) Hypertension: Code(s): I10 - Essential (primary) hypertension Status: Acute Subjective Subjective Date/Time Seen: 02/18/22 11:36 Interval history: Bowels moving. No more bloating. No abdominal pain. Exam GI: Inspection: non-distended GI Palp: Yes Soft to palpation, No Tenderness to palpation present (GI), No Guarding due to palpation present (GI) and No Rebound tenderness present Auscultation: normoactive bowel sounds Objective Data Vital Signs Vital Signs: Vital Signs - 24 hr 02/17/22 14:00 02/17/22 16:00 02/17/22 19:11 Temperature 36.4 C 36.2 C L Pulse Rate 85 86 Respiratory Rate 12 18 Blood Pressure 122/83 106/68 Pulse Oximetry 98 98 Oxygen Delivery Room Air 02/17/22 21:35 02/18/22 03:10 02/18/22 08:00 Temperature 36.4 C Pulse Rate 90 Respiratory Rate 18 Blood Pressure 115/79 Pulse Oximetry 97 Oxygen Delivery Room Air Room Air Intake/Output Intake/Output: Intake & Output 02/15/22 02/16/22 02/17/22 02/18/22 23:59 23:59 23:59 23:59 Intake Total 2000 1000 Output Total 1300 400 Balance 700 600 Meds/Results Medications: Active Medications Generic Name Dose Route Start Last Admin Trade Name Freq PRN Reason Stop Dose Admin Sodium Chloride 1,000 mls @ 100 mls/hr 02/17/22 09:25 02/18/22 05:59 Normal Saline Iv IV CONT 100 mls/hr .Q10H AMILCAR Administration Acetaminophen 650 mg in 65 mls @ 260 mls/hr 02/17/22 13:35 Ofirmev 650 Mg Ivpb IVPB 02/18/22 13:34 Q6H PRN Pain Rated 1-6 Methylprednisolone Sodium Succinate 40 mg 02/17/22 22:00 02/18/22 05:56 Methylprednisolone Sod Succ 40 Mg Vial IV PUSH 40 mg Q8HR AMILCAR Administration Morphine Sulfate 2 mg 02/17/22 09:26 02/17/22 17:04 Morphine Sulfate (*Crx) 2 Mg/Ml Inj IV PUSH 2 mg Q4H PRN Administration Pain Rated 5-10 Radiology Results: ITS Impressions Abdomen/Pelvis CT 02/17/22 07:16 IMPRESSION: 1. Small bowel obstruction with transition into right lower quadrant 10 cm proximal to the ileocolic anastomosis could be due to either adhesion or stricture. 2. Small sliding-type hiatal hernia. 3. Small fat-containing ventral hernia along the caudal anterior pelvic wall. Abdomen X-Ray 02/17/22 09:17 IMPRESSION: 1. Nasogastric tube tip in the stomach. 2. Dilated small bowel, consistent with small bowel obstruction. Upper GI Series 02/18/22 11:23 IMPRESSION: 1: No evidence for obstruction. Irregularity to the distal small bowel, likely reflects patient's known Crohn's disease. Distortion of the bowel is seen consistent with partial distal small bowel resection. Labs Labs: Laboratory Results - last 24 hr 02/17/22 02/17/22 02/18/22 14:19 16:13 04:24 WBC 7.7 RBC 3.87 L Hgb 11.9 L Hct 35.2 L MCV 91.0 MCH 30.7 MCHC 33.8 RDW 12.9 Plt Count 277 MPV 9.0 Sodium Potassium Chloride Carbon Dioxide Anion Gap BUN Creatinine Estim Creat Clear Calc Estimated GFR Glucose Calcium Magnesium Total Bilirubin AST ALT Alkaline Phosphatase C-Reactive Protein < 0.5 Total Protein Albumin Urine Color Yellow Urine Appearance Clear Urine pH 5.0 Ur Specific [place] 1.010 Urine Protein 1+ H Urine Glucose (UA) Negative Urine Ketones Trace Ur B
[2022-02-18 14:22] VITALS: BP 112/58; PULSE 95; RESP 18; TEMP 37.1; O2SAT 99
[2022-02-18 19:12] VITALS: BP 124/58; PULSE 100; RESP 17; TEMP 36.3; O2SAT 98
--- NOTE | 2022-02-18 20:14 | PM.IMPN ---
Progress Note: A&P Assessment and Plan (1) Elevated LFTs: Code(s): R79.89 - Other specified abnormal findings of blood chemistry Status: Acute (2) Small bowel obstruction: Code(s): K56.609 - Unspecified intestinal obstruction, unspecified as to partial versus complete obstruction Status: Acute (3) Obese: Code(s): E66.9 - Obesity, unspecified Status: Acute (4) Hypokalemia: Code(s): E87.6 - Hypokalemia Status: Acute (5) Crohn's disease of ileum: Qualifiers: Digestive disease complication type: unspecified complication Qualified Code(s): K50.019 - Crohn's disease of small intestine with unspecified complications Code(s): K50.00 - Crohn's disease of small intestine without complications Status: Acute Plan 02/18/22 pt improved NGT clamped trial of PO anticipate NGT to be removed soon after possible dc in 24hrs Subjective Date/time seen: 02/18/22 20:14 pt feeling much better NGT is clamped pt wanting to drink +BM multiple acknowledges that we are waiting for GI Review of Systems Review of Systems: All systems reviewed & are unremarkable except as noted in HPI and below Exam Narrative: GEN: NAD, AAOx3, cooperative HEENT: NCAT, MMM, EOMI NGT clamped Neck: no JVD Heart: S1S2 RRR Lungs: CTA B/l Abd: soft, NT, ND, bowel sounds normoactive Ext: moves all, no cyanosis, no clubbing, no edema ? Objective Data Vital Signs Vital Signs: Vital Signs - 24 hr 02/17/22 21:35 02/18/22 03:10 02/18/22 08:00 Temperature 97.6 F Pulse Rate 90 Respiratory Rate 18 Blood Pressure 115/79 Pulse Oximetry 97 Oxygen Delivery Room Air Room Air 02/18/22 14:22 02/18/22 19:12 Temperature 98.8 F 97.3 F L Pulse Rate 95 100 Respiratory Rate 18 17 Blood Pressure 112/58 L 124/58 L Pulse Oximetry 99 98 Oxygen Delivery Intake/Output Intake/Output: Intake & Output 02/15/22 02/16/22 02/17/22 02/18/22 23:59 23:59 23:59 23:59 Intake Total 1999 1999 Output Total 1300 600 Balance 700 1400 Meds/Results Medications: Active Medications Generic Name Dose Route Start Last Admin Trade Name Hari PRN Reason Stop Dose Admin Sodium Chloride 1,000 mls @ 100 mls/hr 02/17/22 09:25 02/18/22 18:04 Normal Saline Iv IV CONT 100 mls/hr .Q10H AMILCAR Administration Methylprednisolone Sodium Succinate 40 mg 02/17/22 22:00 02/18/22 14:00 Methylprednisolone Sod Succ 40 Mg Vial IV PUSH 40 mg Q8HR AMILCAR Administration Morphine Sulfate 2 mg 02/17/22 09:26 02/17/22 17:04 Morphine Sulfate (*Crx) 2 Mg/Ml Inj IV PUSH 2 mg Q4H PRN Administration Pain Rated 5-10 Radiology Results: ITS Impressions Abdomen/Pelvis CT 02/17/22 07:16 IMPRESSION: 1. Small bowel obstruction with transition into right lower quadrant 10 cm proximal to the ileocolic anastomosis could be due to either adhesion or stricture. 2. Small sliding-type hiatal hernia. 3. Small fat-containing ventral hernia along the caudal anterior pelvic wall. Abdomen X-Ray 02/17/22 09:17 IMPRESSION: 1. Nasogastric tube tip in the stomach. 2. Dilated small bowel, consistent with small bowel obstruction. Upper GI Series 02/18/22 11:23 IMPRESSION: 1: No evidence for obstruction. Irregularity to the distal small bowel, likely reflects patient's known Crohn's disease. Distortion of the bowel is seen consistent with partial distal small bowel resection. Labs Labs: Laboratory Results - last 24 hr 02/18/22 02/18/22 02/18/22 04:24 04:24 04:24 WBC 7.7 RBC 3.87 L Hgb 11.9 L Hct 35.2 L MCV 91.0 MCH 30.7 MCHC 33.8 RDW 12.9 Plt Count 277 MPV 9.0 Sodium 143 Potassium 3.3 L Chloride 109 H Carbon Dioxide 23 Anion Gap 11 BUN 12 Creatinine 0.90 Estim Creat Clear Calc 80 Estimated GFR > 60 Glucose 107 Calcium 8.0 L Magnesium 1.7 Total Bilirubin 1.5 H AST 31
[2022-02-19 03:36] VITALS: BP 103/63; PULSE 61; RESP 18; TEMP 36.6; O2SAT 97
[2022-02-19] MEDS: SODIUM CHLORIDE 0.9% IV 1,000 ML 100 ML IV CONT (04:10)
[2022-02-19] MEDS: methylPREDNISolone SOD SUCC 40 MG VIAL IV PUSH ×2 (06:06→14:37)
[2022-02-19 06:09] LABS: Basophils Percent Auto 0.1 % (0.2-1.2); Hematocrit 32.5 % (37.0-47.0); Hemoglobin 10.8 g/dL (12.0-15.0); Immature Granulocyte Percent A 1.1 % (0-0.5); Lymphocytes Percent Auto 9.6 % (18.3-44.2); Mean Corpuscular HGB Conc 33.2 g/dl (32-36); Mean Corpuscular Hemoglobin 30.3 pg (26-34); Mean Corpuscular Volume 91.3 fl (80-100); Mean Platelet Volume 9.3 fl (7.4-10.4); Monocytes Absolute Auto 0.5 K/mm3 (0.1-0.6); Monocytes Percent Auto 5.3 % (2.6-8.5); Neutrophils Absolute Auto 7.8 K/mm3 (1.3-6.7); Neutrophils Percent Auto 83.9 % (45.5-73.1); Platelet Count Result 264 k/mm3 (150-375); Red Blood Count 3.56 M/mm3 (4.2-5.4); Red Cell Distribution Width 13.2 % (11.5-14.5); White Blood Count 9.4 K/mm3 (4.5-10.0)
[2022-02-19 06:20] LABS: Anion Gap 11 mmol/L (8-16); Blood Urea Nitrogen 15 mg/dL (7-17); Calcium 8.3 mg/dL (8.4-10.2); Carbon Dioxide 25 mmol/L (22-30); Chloride 108 mmol/L (98-107); Estimated CRCL calculation 89 ml/min; Estimated Glomerular Filt Rate > 60; Glucose 132 mg/dL (65-110); Sodium 144 mmol/L (137-145)
--- NOTE | 2022-02-19 10:22 | WPDGIPROGNO ---
Progress Note: A&P Assessment and Plan (1) Small bowel obstruction: Code(s): K56.609 - Unspecified intestinal obstruction, unspecified as to partial versus complete obstruction Status: Acute Assessment and Plan: Small-bowel obstruction appears resolved. Yesterday's Gastrografin small-bowel series unremarkable aside from surgical changes. Uncertain whether obstruction was related to inflammation and Crohn's disease versus adhesions. Prompt improvement on starting IV Solu-Medrol. Plan to his keep patient on prednisone 20 mg p.o. daily. Decrease by 5 mg every 3rd day. In hopefully stop prednisone over the next 2 weeks. Patient should follow up electively in the GI office with Trish Villasenor, nurse practitioner, or Dr. Max, is her established market research worker. She may resume her other home medications. Fiber diet today. Discharge this afternoon if diet tolerated. (2) Crohn's disease: Code(s): K50.90 - Crohn's disease, unspecified, without complications Status: Acute Assessment and Plan: Patient with known Crohn's disease. It is uncertain how active this is. She did improve 1 starting IV Solu-Medrol. Plan to resume still are up. Brief trial of prednisone initially 20 mg p.o. daily and decrease by 5 mg every 3rd day. We will ask patient follow-up electively in the office with established GI service , Trish Villasenor. Subjective Date/time seen: 02/19/22 10:22 Patient feels much better today. Passing stool. Denies abdominal pain. NG tube has been clamped. Review of Systems Review of Systems: Review of systems noncontributory. Exam Narrative: Physical exam reveals patient be alert. Vital signs stable. HEENT exam is unremarkable. Patient anicteric. Lungs are clear to auscultation and percussion. Heart is without murmur. Abdomen bowel sounds present soft flat nontender with no organomegaly. Objective Data Vital Signs Vital Signs: Vital Signs - 24 hr 02/18/22 14:22 02/18/22 19:12 02/18/22 20:40 Temperature 98.8 F 97.3 F L Pulse Rate 95 100 Respiratory Rate 18 17 Blood Pressure 112/58 L 124/58 L Pulse Oximetry 99 98 Oxygen Delivery Room Air 02/19/22 03:36 Temperature 97.8 F Pulse Rate 61 Respiratory Rate 18 Blood Pressure 103/63 Pulse Oximetry 97 Oxygen Delivery Intake/Output Intake/Output: Intake & Output 02/16/22 02/17/22 02/18/22 02/19/22 23:59 23:59 23:59 23:59 Intake Total 1999 1999 999 Output Total 1300 600 200 Balance 700 1400 800 Meds/Results Medications: Active Medications Generic Name Dose Route Start Last Admin Trade Name Freq PRN Reason Stop Dose Admin Sodium Chloride 1,000 mls @ 100 mls/hr 02/17/22 09:25 02/19/22 04:10 Normal Saline Iv IV CONT 100 mls/hr .Q10H AMILCAR Administration Methylprednisolone Sodium Succinate 40 mg 02/17/22 22:00 02/19/22 06:06 Methylprednisolone Sod Succ 40 Mg Vial IV PUSH 40 mg Q8HR [facility] Administration Morphine Sulfate 2 mg 02/17/22 09:26 02/17/22 17:04 Morphine Sulfate (*Crx) 2 Mg/Ml Inj IV PUSH 2 mg Q4H PRN Administration Pain Rated 5-10 Prednisone 20 mg 02/20/22 08:00 Prednisone 20 Mg Tablet PO DAILY@0800 [facility] Radiology Results: ITS Impressions Abdomen/Pelvis CT 02/17/22 07:16 IMPRESSION: 1. Small bowel obstruction with transition into right lower quadrant 10 cm proximal to the ileocolic anastomosis could be due to either adhesion or stricture. 2. Small sliding-type hiatal hernia. 3. Small fat-containing ventral hernia along the caudal anterior pelvic wall. Abdomen X-Ray 02/17/22 09:17 IMPRESSION: 1. Nasogastric tube tip in the stomach. 2. Dilated small bowel, consistent with small bowel obstruction. Upper GI Series 02/18/22 11:23 IMPRESSION: 1: No evidence for obstruction. Irregularity to the distal small bowel, likely reflects patient's known Crohn's disease. Distortion of the bowel is seen consistent with parti
--- NOTE | 2022-02-19 19:57 | PM.DS ---
DS: Admitting Diagnosis Discharge Date 02/19/22 Admitting Diagnosis SBO DS: Discharge Diagnosis Discharge Diagnosis (1) Elevated LFTs: Code(s): R79.89 - Other specified abnormal findings of blood chemistry Status: Acute (2) Small bowel obstruction: Code(s): K56.609 - Unspecified intestinal obstruction, unspecified as to partial versus complete obstruction Status: Acute (3) Obese: Code(s): E66.9 - Obesity, unspecified Status: Acute (4) Hypokalemia: Code(s): E87.6 - Hypokalemia Status: Acute (5) Crohn's disease of ileum: Qualifiers: Digestive disease complication type: unspecified complication Qualified Code(s): K50.019 - Crohn's disease of small intestine with unspecified complications Code(s): K50.00 - Crohn's disease of small intestine without complications Status: Acute Plan 02/17/22 CT scan shows a small-bowel obstruction with transition point about 10 cm proximal to ileocolic anastomosis. It is unclear whether this is secondary to adhesions or stricture from active disease. NG tube has been inserted. Analgesics available as needed. Surgery consulted for their input. Dr. Billings has been consulted and his input is appreciated. At this time he recommends a trial of IV steroids. Noted on previous labs and stable. May be drug related. Check hepatitis panel for completeness sake and monitor. Blood pressures were reviewed. She was recently taken off hydrochlorothiazide due to issues with hypokalemia and hypomagnesemia and despite this her blood pressures are looking good. 02/18/22 pt improved solumedrol NGT clamped trial of PO anticipate NGT to be removed soon after possible dc in 24hrs DS: Summary Hospital Course Reason for hospitalization: Chief Complaint: Abdominal pain. Narrative: This is a pleasant 51-year-old female with Crohn's disease and history of small-bowel obstructions status post partial small-bowel resection who presented to the emergency department for evaluation of abdominal pain. It is not necessarily unusual for her to have bouts of abdominal pain which she attributes to her Crohn's disease. She is typically able to manage these flare-ups at home with bowel rest and analgesics. The last few days however her pain has been more intense and has lasted longer associated with nausea and vomiting.? In fact she thinks that 2 days ago her emesis may have contained feculent material. Normally she has 6 to 7 loose stools a day at baseline however over the last couple of days she has been only having 1 to 2 small loose stools a day.? She has not noticed any blood or mucus in the stool or any blood in her emesis. She has not had fever, chills, or sweats. CT of the abdomen and pelvis showed evidence of a small-bowel obstruction with transition into the right lower quadrant approximately 10 centimeters proximal to an ileocolic anastomosis which could be either due to adhesions or stricture.? She is being admitted in this setting for further treatment. At the time my evaluation she feels perhaps a little bit better since her NG tube was inserted as she continues to have intermittent cramping and sharp shooting pain. Last Stelara injection was about 1 month ago. She has not been on steroids for quite some time. Hospital Course: 51-year-old female admitted to the hospital for SBO suspected to be associated with her known history of Crohn's disease. She was seen by Gastroenterology and placed on Solu-Medrol with prompt improvement of her symptoms. NG tube was successfully removed on day 2 of hospitalization in patient's diet was advanced. She was discharged home after tolerating diet on prednisone 20 mg p.o. q.day with indications to decrease by 5 mg Q 3rd day. Patient initially was given indications of follow-up with her Gastroenterology office and return to her primary care physician. Time Spent with Patient Time attestation: Total time spent providing and
[2022-02-27 16:33] LABS: Calprotectin, Stool 161 mcg/g
== END 2022-02-19 14:58 | disposition home or self-care (01) | DRG 389 ==
LOC: ANHED 07:55 → ANH2MED 09:19
PROVIDERS: Emergency Medicine; Internal Medicine Gastroenterology; Physician Assistant; Admitting Provider Hospitalist; Emergency Provider Emergency Medicine; Visit Provider Hospitalist
DX: K56.609 Unspecified intestinal obstruction, unspecified as to partial versus complete obstruction (principal); K50.90 Crohn's disease, unspecified, without complications; I10 Essential (primary) hypertension; E87.6 Hypokalemia; E66.9 Obesity, unspecified; R79.89 Other specified abnormal findings of blood chemistry; Z90.49 Acquired absence of other specified parts of digestive tract
CPT/HCPCS: 36415; 74177; 74240; 74248; 80048; 80053; 80074; 81001; 83605; 83690; 83735; 83993; 85025; 85027; 86140; 96361; 96374; 96375; 99285; G0378; J1170; J2270; J2405; J2920; J7030; Q9967

== ENCOUNTER 2022-03-23 15:08 | Outpatient (CLI) | payer OTHER, SELFPAY ==
[2022-03-23 16:37] LABS: Hematocrit 43.3 % (37.0-47.0); Hemoglobin 14.7 g/dL (12.0-15.0); Mean Corpuscular HGB Conc 33.9 g/dl (32-36); Mean Corpuscular Hemoglobin 30.7 pg (26-34); Mean Corpuscular Volume 90.4 fl (80-100); Mean Platelet Volume 9.1 fl (7.4-10.4); Platelet Count Result 334 k/mm3 (150-375); Red Blood Count 4.79 M/mm3 (4.2-5.4); White Blood Count 16.7 K/mm3 (4.5-10.0)
[2022-03-23 17:13] LABS: Iron 70 ug/dL (37-170)
[2022-03-23 17:18] LABS: Alanine Aminotransferase 74 U/L (6-35); Albumin Level 4.8 g/dL (3.5-5.1); Alkaline Phosphatase 98 U/L (38-126); Anion Gap 14 mmol/L (8-16); Aspartate Amino Transferase 33 U/L (14-36); Bilirubin Indirect 0.8 mg/dL (0-1.1); Bilirubin,Total 1.2 mg/dL (0.2-1.3); Blood Urea Nitrogen 21 mg/dL (7-17); Calcium 9.5 mg/dL (8.4-10.2); Carbon Dioxide 21 mmol/L (22-30); Chloride 103 mmol/L (98-107); Estimated Glomerular Filt Rate 58; Glucose 108 mg/dL (65-110); Potassium 3.4 mmol/L (3.4-5.0); Sodium 138 mmol/L (137-145)
[2022-03-23 17:22] LABS: Erythrocyte Sedimentation Rate 12 mm/hr (0-20)
[2022-03-23 17:33] LABS: Percent Iron Saturation 16 % (20-50)
[2022-03-23 17:54] LABS: Vitamin D 25 Hydroxy 36.9 ng/mL
[2022-03-23 18:35] LABS: Folic Acid 10.7 ng/mL (2.76->20)
== END 2022-03-23 15:09 | disposition home or self-care (01) ==
LOC: ANHLAB 15:11
PROVIDERS: Visit Provider Nurse Practitioner Family
DX: R79.89 Other specified abnormal findings of blood chemistry (principal); K50.90 Crohn's disease, unspecified, without complications; K56.609 Unspecified intestinal obstruction, unspecified as to partial versus complete obstruction; D64.9 Anemia, unspecified
CPT/HCPCS: 36415; 80053; 82306; 82607; 82657; 82728; 82746; 83540; 83550; 85027; 85652

== ENCOUNTER 2022-03-28 15:08 | Outpatient (CLI) | payer OTHER, SELFPAY ==
[2022-03-28 15:36] LABS: CRP 2.7 mg/dL (<1.0)
== END 2022-03-28 15:09 | disposition home or self-care (01) ==
LOC: ANHLAB 15:10
PROVIDERS: Visit Provider Nurse Practitioner Family
DX: K50.90 Crohn's disease, unspecified, without complications (principal); K56.609 Unspecified intestinal obstruction, unspecified as to partial versus complete obstruction; D64.9 Anemia, unspecified
CPT/HCPCS: 36415; 86140